=== PATIENT | female | born 1990 | race American Indian/Alaskan Native ===

== ENCOUNTER 2019-07-23 15:45 | Emergency (ER) | payer SELFPAY ==
[2019-07-23 16:01] VITALS: BP 133/68
--- NOTE | 2019-07-23 16:04 | Emergency Department Report ---
Chief Complaint: Recheck/Abnormal Lab/Rx Stated Complaint: BLOOD TEST Time Seen by Provider: 07/23/19 16:00 - HPI History of Present Illness: pt presents to "confirm her states she wants a blood test" states she had a positive urine preg test states LNMP jun 16, 2019 she denies any abd pain, vaginal bleeding, or any other symptoms. pt is presenting with a non medical emergency at this time she is having no vaginal bleeding, no abd pain, no pelvic pain pt referred to clinics and to [facility] advised pt to please follow up with one of the clinics provided. take a vitamin over the counter. increase your water intake. follow up with an [facility]. return to the emergency room for any new or worsening symptoms . MSE screening note: Focused history and physical exam performed. Due to findings the following was ordered: ED Disposition for MSE Clinical Impression: Possible , not yet confirmed Disposition: - MED SCREENING EXAM-LEFT Is pt being admited?: No Does the pt Need Aspirin: No Condition: Stable Instructions: (ED) Additional Instructions: please follow up with one of the clinics provided. take a vitamin over the counter. increase your water intake. follow up with an [facility]. return to the emergency room for any new or worsening symptoms . [facility] Address: [address] [place] [address] [address], [place] [address] care center [place] [phone] Referrals: [facility] [Provider Group] - 2-3 Days [facility] [Outside] - 2-3 Days [facility] [Outside] - 2-3 Days [facility] [Provider Group] - 2-3 Days [facility] [Provider Group] - 2-3 Days Time of Disposition: 16:01 Print Language: SINHALA
== END 2019-07-23 16:30 | disposition left against medical advice (07) ==
LOC: ED 15:45
DX: Z32.00 Encounter for pregnancy test, result unknown (principal); Z88.8 Allergy status to other drugs, medicaments and biological substances